=== PATIENT | female | born 1985 | race Caucasian/White ===

== ENCOUNTER 2022-12-31 13:19 | Emergency (ER) | payer SELFPAY ==
[~2022-12-31] VITALS: Ht 167.6 cm; Wt 68.0 kg
[2022-12-31 13:22] VITALS: BP 123/74
--- NOTE | 2022-12-31 13:32 | NUR ---
PT AMB TO BED 3.
--- NOTE | 2022-12-31 13:32 | NUR ---
here for med request, states lost her meds. PILO at bs
[2022-12-31] MEDS ORDERED: OXcarbazepine 150 MG TAB PO SCH (14:05)
[2022-12-31] MEDS ORDERED: ALPRAZolam 0.5 MG TAB PO ONE (14:05)
[2022-12-31] MEDS ORDERED: PARoxetine 20 MG TAB PO ONE (14:05)
[2022-12-31 14:11] VITALS: BP 123/74
--- NOTE | 2022-12-31 14:11 | NUR ---
Patient discharged with v/s stable. Written and verbal after care instructions given and explained. Patient verbalized understanding. Ambulatory with steady gait. All questions addressed prior to discharge. Advised to follow up with PMD.
[2022-12-31] MEDS ORDERED: CRUSHER, PILL MC ONE (14:15)
== END 2022-12-31 14:11 | disposition home or self-care (01) ==
LOC: MED 13:19
DX: F41.9 Anxiety disorder, unspecified (principal); F32.A Depression, unspecified; Z76.0 Encounter for issue of repeat prescription; Z79.899 Other long term (current) drug therapy
CPT/HCPCS: 99284